=== PATIENT | female | born 2000 | race Caucasian/White ===

== ENCOUNTER 2025-01-10 14:08 | Outpatient (CLI) | payer OTHER, SELFPAY ==
--- NOTE | ~2025-01-10 | XR_ITS ---
EXAMINATION: XR wrist RT min 3V, 01/10/2025 14:10 [facility] HISTORY: pain in rt wrist attn ulnar aspect recent fall COMPARISON: No comparisons available. Findings: No acute fracture or malalignment. No significant degenerative changes. Soft tissues unremarkable. Impression: No acute fracture or malalignment. Reviewed, dictated and finalized at location [facility]. [facility] Impression: No acute fracture or malalignment.
== END 2025-01-10 14:09 | disposition home or self-care (01) ==
PROVIDERS: PCP Internal Medicine; Visit Provider Internal Medicine
DX: M25.531 Pain in right wrist (principal)
CPT/HCPCS: 73110

== ENCOUNTER 2025-02-19 00:42 | Emergency (ER) | payer OTHER, SELFPAY ==
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
[2025-02-19 01:16] VITALS: BP 124/69; PULSE 96; RESP 18; TEMP 36.7; O2SAT 100
--- NOTE | 2025-02-19 04:09 | PC.NURSE ---
pt stepped out of ED, unable to VS
[2025-02-19 04:15] VITALS: BP 124/65; PULSE 82; RESP 18; TEMP 37.2; O2SAT 100
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
[2025-02-19 05:06] LABS: BEDSIDEPREGUCG Negative (Negative)
[2025-02-19] MEDS: ONDANSETRON HCL ODT 4 MG TABLET PO (06:14)
[2025-02-19 06:19] VITALS: O2SAT 98
[2025-02-19 06:21] VITALS: BP 126/67; PULSE 86; RESP 17; TEMP 36.9; O2SAT 100
[2025-02-19 06:23] VITALS: BP 126/67; PULSE 86; RESP 17; TEMP 36.9; O2SAT 100
== END 2025-02-19 06:25 | disposition home or self-care (01) ==
PROVIDERS: Emergency Provider Student in an Organized Health Care Education/Training Program; PCP Internal Medicine
DX: T59.811A Toxic effect of smoke, accidental (unintentional), initial encounter (principal); Z79.3 Long term (current) use of hormonal contraceptives
CPT/HCPCS: 71045; 81025; 99283; A9270